=== PATIENT | female | born 1935 | race Hispanic/Latino ===

== ENCOUNTER 2017-12-23 16:39 | Inpatient (IN) | payer MEDICARE, BC ==
[2017-12-23 16:55] VITALS: BMI 20.5
[2017-12-23 19:42] LABS: CK-MB 0.77 ng/mL (0.0-3.38)
[2017-12-23 19:43] LABS: TROPONIN I 0.017 ng/mL (0.00-0.120)
--- NOTE | 2017-12-23 19:48 | C.PDOC ---
History Of Present Illness 82yo female with history of hypertension, [place] along with watchman's procedure, splenectomy, presents today because she has been having difficulty walking. She reports frequent falls in the last couple months with last fall 3-4 days ago. She is also complaining of generalized weakness and bodyaches. She reports she injured her arms and legs and has bruises on her arms; also reports right sided rib pain. She denies any fever, chills, chest pain, shortness of breath. Of note , patient states she has not eaten for the last 4 days because she has not had any appetite. She denies any abdominal pain, vomiting, diarrhea, constipation. No urinary symptoms. No other complaints. Time Seen by Provider: 12/23/17 19:09 Chief Complaint (Nursing): Chest Pain Past Medical History Vital Signs: Last Vital Signs Temp 97.1 F L 12/23/17 16:55 Pulse 79 12/23/17 16:55 Resp 20 12/23/17 16:55 BP 125/77 12/23/17 16:55 Pulse Ox 99 12/23/17 16:55 - Medical History PMH: Arthritis (feet legs), Cardia Arrhythmia, Diverticulitis, HTN, Hypothyroidism, Pneumonia Denies: Depression, Chronic Kidney Disease Surgical History: Appendectomy, Pacemaker - [facility] Procedures AUTOMATIC IMPLANT CARDIOVERTER/DEFIBRILLATOR (AICD) CHECK (06/04/13) DRESSING TECHNIQUES TREATMENT USING ASSIST EQUIPMENT (10/30/17) ESOPHAGOGASTRODUODENOSCOPY [EGD] W/CLOSED BIOPSY (04/06/04) EXERCISE TREATMENT OF MUSCULOSK LOW BACK/LE USING OTH EQUIP (10/30/17) GAIT TRAINING/FUNCTIONAL AMBULATION TREATMENT (10/30/17) GROOMING/PERSONAL HYGIENE TREATMENT (10/30/17) INJECT/INFUSE NEC (06/04/13) MAGNETIC RESONANCE IMAGING OF BRAIN AND BRAIN STEM (04/06/04) - Social History Hx Tobacco Use: No Hx Alcohol Use: No (pt states she drinks socially) Hx Substance Use: No ED Course And Treatment O2 Sat by Pulse Oximetry: 99 Disposition - Disposition
--- NOTE | 2017-12-23 19:53 | C.PDOC ---
History Of Present Illness 82yo female with history of hypertension, [place] along with watchman's procedure, splenectomy, presents today because she has been having difficulty walking. She reports frequent falls in the last couple months with last fall 3-4 days ago. She is also complaining of generalized weakness and bodyaches. She reports she injured her arms and legs and has bruises on her arms; also reports right sided rib pain. She denies any fever, chills, chest pain, shortness of breath. Of note , patient states she has not eaten for the last 4 days because she has not had any appetite. She denies any abdominal pain, vomiting, diarrhea, constipation. No urinary symptoms. No other complaints. - HPI Time Seen by Provider: 12/23/17 19:09 Chief Complaint (Nursing): Chest Pain History Per: Patient History/Exam Limitations: no limitations Onset/Duration Of Symptoms: Days Additional History Per: Patient Past Medical History Reviewed: Historical Data, Nursing Documentation, Vital Signs Vital Signs: Last Vital Signs Temp 97.1 F L 12/23/17 16:55 Pulse 79 12/23/17 16:55 Resp 20 12/23/17 16:55 BP 125/77 12/23/17 16:55 Pulse Ox 99 12/23/17 21:45 - Medical History PMH: Arthritis (feet legs), Cardia Arrhythmia, Diverticulitis, HTN, Hypothyroidism, Pneumonia Denies: Depression, Chronic Kidney Disease Surgical History: Appendectomy, Pacemaker - [facility] Procedures AUTOMATIC IMPLANT CARDIOVERTER/DEFIBRILLATOR (AICD) CHECK (06/04/13) DRESSING TECHNIQUES TREATMENT USING ASSIST EQUIPMENT (10/30/17) ESOPHAGOGASTRODUODENOSCOPY [EGD] W/CLOSED BIOPSY (04/06/04) EXERCISE TREATMENT OF MUSCULOSK LOW BACK/LE USING OTH EQUIP (10/30/17) GAIT TRAINING/FUNCTIONAL AMBULATION TREATMENT (10/30/17) GROOMING/PERSONAL HYGIENE TREATMENT (10/30/17) INJECT/INFUSE NEC (06/04/13) MAGNETIC RESONANCE IMAGING OF BRAIN AND BRAIN STEM (04/06/04) - Social History Hx Tobacco Use: No Hx Alcohol Use: No (pt states she drinks socially) Hx Substance Use: No Review Of Systems Except As Marked, All Systems Reviewed And Found Negative. Constitutional: Negative for: Fever, Chills Cardiovascular: Negative for: Chest Pain Respiratory: Negative for: Shortness of Breath Gastrointestinal: Negative for: Nausea, Vomiting, Diarrhea, Constipation Musculoskeletal: Positive for: Other (bruises to arms and legs; right sided lower rib pain) Neurological: Positive for: Other (falls) Physical Exam - Physical Exam Appears: Non-toxic Skin: Ecchymosis Head: Atraumatic, Normacephalic Eye(s): bilateral: Normal Inspection Neck: Normal ROM, Supple Chest: Symmetrical, Tenderness (reproducible mid-sternal and bilateral chest wall tenderness) Cardiovascular: Rhythm Regular Respiratory: Normal Breath Sounds Gastrointestinal/Abdominal: Normal Exam, Bowel Sounds, Soft, No Tenderness Back: Other (back in brace) Extremity: Normal ROM, Pedal Edema (2+ pittting edema bilaterally), Other ( ecchymosis noted to bilateral upper and lower extremities. ) Neurological/Psych: Oriented x3 ED Course And Treatment - Laboratory Results Result Diagrams: 12/23/17 20:47 12/23/17 20:47 ECG: Interpreted By Me, Viewed By Me Interpretation Of ECG: Normal sinus rhythm. RBBB. Left anterior fascicular block. Non-specific T-wave changes Rate From EC O2 Sat by Pulse Oximetry: 99 (RA) Pulse Ox Interpretation: Normal Medical Decision Making Medical Decision Making: Impression: Weakness, frequent falls Plan: -- CT Head w/o contrast -- XR Ribs and chest -- Labs Time: 2118 CT Head IMPRESSION: 1. No definite intracranial hemorrhage. 2. Nonspecific white matter changes. 3. Incidental/non-acute findings are described above. Time: [address] Belcher and patient to be admitted to Telemetry for near syncope. resident advisor aware and to follow up pending labs. Disposition Discussed With : Alberto Belcher Jr. Counseled Patient/Family Regarding: Studies Performed, Diagnosis - Disposition Disposition: HOSPITALIZED Disposition Time: 21:46 Condition: FAIR Forms: [facility] (Hungarian) - Clinical Impression Clinical Impression: Near syncope, Rib contusion - Scribe Statement The provider has reviewed the documentation as recorded by the Scribe (Isha Leonardo) Provider Attestation: All medical record entries made by the Scribe were at my direction and personally dictated by me. I have reviewed the chart and agree that the record accurately reflects my personal performance of the history, physical exam, medical decision making, and the department course for this patient. I have also personally directed, reviewed, and agree with the discharge instructions and disposition.
[2017-12-23 20:53] LABS: BASO # 0.1 K/uL (0.0-0.2); BASO % 1.4 % (0.0-2.0); EOS % 0.7 % (0.0-4.0); HEMOGLOBIN 11.7 g/dL (11.0-16.0); LYMPH # 1.1 K/uL (1.0-4.3); LYMPH % 18.4 % (20.0-40.0); MEAN CELL VOLUME 102.3 fL (81.0-99.0); MEAN CORPUSCULAR HEMOGLOBIN 33.8 pg (27.0-31.0); MEAN PLATELET VOLUME 9.6 fL (7.2-11.7); MONO # 0.3 K/uL (0.0-0.8); MONO % 4.9 % (0.0-10.0); NEUT # 4.3 K/uL (1.8-7.0); NEUT % 74.6 % (50.0-75.0); NRBC % 1.3 % (0.0-2.0); RBC 3.46 Mil/uL (3.80-5.20); RED CELL DISTRIBUTION WIDTH 19.9 % (11.5-14.5); WHITE BLOOD COUNT 5.7 K/uL (4.8-10.8)
--- NOTE | 2017-12-23 21:15 | CT ---
EXAM: CT Head Without Intravenous Contrast CLINICAL HISTORY: 82 years old, female; Injury or trauma; Fall; Initial encounter; Abrasion; Head, generalized TECHNIQUE: Axial computed tomography images of the head/brain without intravenous contrast. All CT scans at this facility use one or more dose reduction techniques, viz.: automated exposure control; ma/kV adjustment per patient size (including targeted exams where dose is matched to indication; i.e. head); or iterative reconstruction technique. COMPARISON: No relevant prior studies available. FINDINGS: Limitations: Motion artifact - mild. Brain: Moderate atrophy. No definite intracranial hemorrhage. No mass. Few scattered foci of decreased attenuation within periventricular/subcortical white matter. 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 No definite edema. Ventricles: No hydrocephalus. Bones/joints: No acute fracture. Soft tissues: Unremarkable. Vasculature: Atherosclerotic disease of intracranial arteries. Sinuses: No acute sinusitis. Mastoid air cells: No mastoid effusion. Orbits: Unremarkable as visualized. IMPRESSION: 1. No definite intracranial hemorrhage. 2. Nonspecific white matter changes. 3. Incidental/non-acute findings are described above.
[2017-12-23 21:22] LABS: ALB/GLOB RATIO 1.2 (1.0-2.1); ALBUMIN 3.3 g/dL (3.5-5.0); CALCIUM 8.5 mg/dl (8.6-10.4); GFR AFRICAN-AMERICAN > 60; GFR NON-AFRICAN AMERICAN > 60
[2017-12-23 21:31] LABS: B-TYPE NATRIURETIC PEPTIDE 477 pg/mL (0-900)
[2017-12-23 21:34] LABS: ALT/SGPT 54 U/L (9-52); AST/SGOT 113 U/L (14-36); BLOOD UREA NITROGEN 15 mg/dL (7-17)
[2017-12-23 22:06] LABS: SQUAMOUS EPITHIAL 7 /hpf (0-5); URINE BILIRUBIN NEGATIVE (NEGATIVE); URINE BLOOD 1+ (NEGATIVE); URINE CLARITY Hazy (Clear); URINE COLOR Amber (YELLOW); URINE GLUCOSE (UA) NORMAL (Normal); URINE LEUKOCYTE ESTERASE NEG Leu/uL (Negative); URINE NITRATE NEGATIVE (NEGATIVE); URINE PROTEIN NEGATIVE (NEGATIVE)
--- NOTE | 2017-12-23 22:49 | CP.PCM.HP ---
History of Present Illness - History of Present Illness History of Present Illness: CC: weakness/loss of balance This ia an 82 y/o female with history of hypertension, [place], CAD s/p stent(s), chronic lower back pain, anxiety, afib s/p watchman's procedure and diverticulitis s/p colon resection. She presents today because she has been having difficulty walking. She explains that she has been feeling off balance for about two weeks now. The episodes are relapsing and remitting. It is unclear if she has had any recent falls because she states she has not but when asked about bruising on her arms she states that it is from falls. She reports she injured her arms and legs and has bruises on her arms and legs. She is also complaining of generalized weakness. She denies any headache, fever, chills, chest pain, shortness of breath, chest pain, vomiting diarrhea, constipation, dysuria. She states that she does become nauseous during these episodes but denies dizziness/feeling the room is spinning/she is spinning. She states she just feels weak and off balance. She states that she saw Dr. Belcher at his office yesterday who instructed her to come to the ED for further evaluation but she was unable to come because her daughter was working and she could not get here. Of note, in speaking with her PMD, Dr. Belcher, he explains that the patient has dementia and may have provided an inaccurate account of events. He explains that the patient has had multiple falls and is having a severely compromised gait. PMD: Dr. Belcher Pmhx: hypertension, [place], CAD s/p stent(s), chronic lower back pain, anxiety, afib s/p watchman's procedure and diverticulitis s/p colon resection Pshx: watchman's procedure, colon resection, splenectomy Meds: Temazepam 15mg PO qhs, Lisinopril 20mg PO qd, metoprolol succ 25mg PO daily, nexium 40mg PO daily, Plavix 75mg PO daily, amiodarone 200mg PO daily, pecocet 5/325mg 1T PO q4hrs prn, xanax, 0.5mg po tid allergies: NKDA Famhx: "heart problems in everyone" Sochx: no smoking, drinks sparingly, no drugs Present on Admission - Present on Admission Any Indicators Present on Admission: No Review of Systems - Review of Systems Systems not reviewed;Unavailable: Dementia - Constitutional Constitutional: Weakness. absent: Chills, Fever - EENT Eyes: absent: Blurred Vision, Loss of Vision - Cardiovascular Cardiovascular: absent: Chest Pain, Diaphoresis, Dyspnea - Respiratory Respiratory: absent: Cough, Dyspnea, Wheezing - Gastrointestinal Gastrointestinal: Nausea. absent: Abdominal Pain, Constipation, Diarrhea, Vomiting - Genitourinary Genitourinary: absent: Difficulty Urinating, Dysuria, Flank Pain - Musculoskeletal Musculoskeletal: Back Pain (chronic lbp, now has pain in the ribs on the right) . absent: Numbness, Tingling - Integumentary Integumentary: Unusual Bruising (on arms and legs) - Neurological Neurological: Abnormal Gait, Dizziness, Frequent Falls, Weakness Past Patient History - Infectious Disease Hx of Infectious Diseases: None - Tetanus Immunizations Tetanus Immunization: Unknown - Past Social History Smoking Status: Never Smoked - CARDIAC Hx Cardia Arrhythmia: Yes Hx Hypertension: Yes Hx Pacemaker: Yes - PULMONARY Hx Pneumonia: Yes - NEUROLOGICAL Hx Neurological Disorder: Yes (NEAR SYNCOPE) Hx Dizziness: Yes - HEENT Hx HEENT Problems: No - RENAL Hx Chronic Kidney Disease: No - ENDOCRINE/METABOLIC Hx Hypothyroidism: Yes - HEMATOLOGICAL/ONCOLOGICAL Hx Blood Disorders: No - INTEGUMENTARY Hx Dermatological Problems: Yes Other/Comment: 10-24-17 MULTIPLE ROUND DRY RASH ALL OVER UPPER BACK,BILATERAL ARM ,BILATERAL LE. - MUSCULOSKELETAL/RHEUMATOLOGICAL Hx Arthritis: Yes (feet legs) - GASTROINTESTINAL Hx Diverticulitis: Yes - GENITOURINARY/GYNECOLOGICAL Hx Genitourinary Disorders: Yes (HYSTERECTOMY) - PSYCHIATRIC Hx Depression: No Hx Substance Use: No - SURGICAL HISTORY Hx Appendectomy: Yes - ANESTHESIA Hx Anesthesia: Yes Hx Anesthesia Reactions: No Hx Malignant Hyperthermia: No Meds Allergies/Adverse Reactions: Allergies Allergy/AdvReac Type Severity Reaction Status Date / Time No Known Allergies Allergy Verified 11/18/17 11:48 Physical Exam - Constitutional Appears: No Acute Distress, Confused - Head Exam Head Exam: ATRAUMATIC, NORMOCEPHALIC - Eye Exam Eye Exam: EOMI, Normal appearance - ENT Exam ENT Exam: Mucous Membranes Moist - Neck Exam Neck exam: Negative for: Tenderness - Respiratory Exam Respiratory Exam: Clear to Auscultation Bilateral, NORMAL BREATHING PATTERN. absent: Rhonchi, Wheezes - Cardiovascular Exam Cardiovascular Exam: Irregular Rhythm - GI/Abdominal Exam GI & Abdominal Exam: Soft. absent: Distended (scars from previous surgeries), Tenderness - Extremities Exam Extremities exam: Positive for: pedal edema (+1, non-pitting). Negative for: calf tenderness - Back Exam Back exam: absent: CVA tenderness (L), CVA tenderness (R) - Neurological Exam Neurological exam: Abnormal Gait, Alert - Psychiatric Exam Psychiatric exam: Anxious - Skin Skin Exam: Dry, Intact, Warm (bruising on arms and legs) Results - Vital Signs Recent Vital Signs: Last Vital Signs Temp 97.1 F L 12/23/17 16:55 Pulse 70 12/23/17 22:33 Resp 13 12/23/17 22:33 BP 131/54 L 12/23/17 22:33 Pulse Ox 99 12/23/17 22:33 - Labs Result Diagrams: 12/23/17 20:47 12/23/17 20:47 Labs: Laboratory Results - last 24 hr 12/23/17 12/23/17 12/23/17 19:15 20:47 20:47 WBC 5.7 RBC 3.46 L Hgb 11.7 Hct 35.4 MCV 102.3 H MCH 33.8 H MCHC 33.0 RDW 19.9 H Plt Count 197 MPV 9.6 Neut % (Auto) 74.6 Lymph % (Auto) 18.4 L [place] % (Auto) 4.9 Eos % (Auto) 0.7 Baso % (Auto) 1.4 Neut # (Auto) 4.3 Lymph # (Auto) 1.1 Valley # (Auto) 0.3 Eos # (Auto) 0.0 Baso # (Auto) 0.1 Sodium Cancelled 137 Potassium Cancelled 4.3 Chloride Cancelled 106 Carbon Dioxide Cancelled 23 Anion Gap Cancelled 12 BUN Cancelled 15 Creatinine 0.7 Est GFR ( Amer) Cancelled > 60 Est GFR (Non-Af Amer) Cancelled > 60 Random Glucose Cancelled 110 H Calcium Cancelled 8.5 L Total Bilirubin Cancelled 1.0 AST Cancelled 113 H D ALT Cancelled 54 H Alkaline Phosphatase Cancelled 87 Total Creatine Kinase 57 CK-MB (Mass) 0.77 Troponin I 0.0170 NT-Pro-B Natriuret Pep Cancelled 477 Total Protein Cancelled 6.0 L Albumin Cancelled 3.3 L Globulin Cancelled 2.8 Albumin/Globulin Ratio Cancelled 1.2 Urine Color Urine Clarity Urine pH Ur Specific [place] Urine Protein Urine Glucose (UA) Urine Ketones Urine Blood Urine Nitrate Urine Bilirubin Urine Urobilinogen Ur Leukocyte Esterase Urine WBC (Auto) Urine RBC (Auto) Ur Squamous Epith Cells 12/23/17 21:59 WBC RBC Hgb Hct MCV MCH MCHC RDW Plt Count MPV Neut % (Auto) Lymph % (Auto) Valley % (Auto) Eos % (Auto) Baso % (Auto) Neut # (Auto) Lymph # (Auto) [place] # (Auto) Eos # (Auto) Baso # (Auto) Sodium Potassium Chloride Carbon Dioxide Anion Gap BUN Creatinine Est GFR ( Amer) Est GFR (Non-Af Amer) Random Glucose Calcium Total Bilirubin AST ALT Alkaline Phosphatase Total Creatine Kinase CK-MB (Mass) Troponin I NT-Pro-B Natriuret Pep Total Protein Albumin Globulin Albumin/Globulin Ratio Urine Color [place] Urine Clarity Hazy Urine pH 5.0 Ur Specific [place] 1.024 Urine Protein Negative Urine Glucose (UA) Normal Urine Ketones Negative Urine Blood 1+ H Urine Nitrate Negative Urine Bilirubin Negative Urine Urobilinogen 4.0 H Ur Leukocyte Esterase Neg Urine WBC (Auto) 1 Urine RBC (Auto) 3 Ur Squamous Epith Cells 7 H Assessment & Plan - Assessment and Plan (Free Text) Plan: Weakness/failure to thrive with recent falls Admission to [facility] Patient has hx of dementia CT head negative for acute changes Follow up x-ray ribs for any fractures or acute changes MIRZA: 0.0170; follow up MIRZA's x2 EKG reviewed- abnormal, prolonged QTc- follow up official read UA: +1 blood, 4.0 urobilinogen Hgb on admission 11.7 Albumin 3.3 Normal WBC PT evaluation Home med continued: folate, thiamine Follow up labs- cbc/cmp/lipid panel/tsh/t4/RPR/vit D/B12/Folate/hemoglobin A1C Follow up orthostatics Transaminitis- mild AST/ALT 113/54 continue to monitor Chronic Lower back pain Home med continued: percocet 5/325mg q4hrs prn Given Ultram in ED HTN Home med continued: Lisinopril 20mg PO daily, Metoprolol Succ 25mg PO daily Chronic Afib S/P Watchman's procedure Home med continued: plavix 75mg PO daily start ASA 81mg daily CAD Home med continued: plavix 75mg PO daily, amiodarone 200mg PO daily start ASA 81mg daily Anxiety Home med continued: xanax 0.5mg PO TID, Temazepam 15mg PO hs Consider discontinuation/substitution given recent hx of falls Prophylaxis Pepcid 20mg PO BID No a/c due to recent falls bruising/bleeding Case discussed with Dr. Simi Villanueva D.O.
[2017-12-23] MEDS ORDERED: Oxycodone/Acetaminophen 5/325 mg Tab PO PRN (23:32)
[2017-12-24] MEDS: Oxycodone/Acetaminophen 5/325 mg Tab PO PRN ×5 (01:40→20:10)
[2017-12-24] MEDS ORDERED: Oxycodone/Acetaminophen 5/325 mg Tab ONE ×2 (01:42→05:42)
[2017-12-24 02:05] LABS: CK-MB 0.47 ng/mL (0.0-3.38)
[2017-12-24 04:57] LABS: BASO # 0.1 K/uL (0.0-0.2); EOS # 0.1 K/uL (0.0-0.7); EOS % 2.4 % (0.0-4.0); HEMOGLOBIN 10.7 g/dL (11.0-16.0); LYMPH # 1.5 K/uL (1.0-4.3); LYMPH % 27.7 % (20.0-40.0); MEAN CELL VOLUME 102.4 fL (81.0-99.0); MEAN CORPUSCULAR HEMOGLOBIN 33.8 pg (27.0-31.0); MEAN PLATELET VOLUME 9.3 fL (7.2-11.7); MONO # 0.4 K/uL (0.0-0.8); MONO % 8.2 % (0.0-10.0); NEUT # 3.2 K/uL (1.8-7.0); NEUT % 59.7 % (50.0-75.0); NRBC % 1.2 % (0.0-2.0); RBC 3.16 Mil/uL (3.80-5.20); RED CELL DISTRIBUTION WIDTH 20.2 % (11.5-14.5); WHITE BLOOD COUNT 5.4 K/uL (4.8-10.8)
[2017-12-24 05:31] LABS: LDL CHOLESTEROL 41 mg/dL (0-129)
[2017-12-24 05:36] LABS: T4 8.51 ug/dL (5.5-11.0)
[2017-12-24] MEDS ORDERED: Ergocalciferol 50,000 Intl Units Cap PO SCH (05:45)
[2017-12-24 06:24] LABS: FOLATE > 20.0 ng/mL
[2017-12-24 06:45] LABS: ALB/GLOB RATIO 1.1 (1.0-2.1); ALBUMIN 2.8 g/dL (3.5-5.0); ALT/SGPT 50 U/L (9-52); AST/SGOT 67 U/L (14-36); BLOOD UREA NITROGEN 16 mg/dL (7-17); CALCIUM 8.4 mg/dl (8.6-10.4); GFR AFRICAN-AMERICAN > 60; GFR NON-AFRICAN AMERICAN > 60; HDL CHOLESTEROL 87 mg/dL (30-70); MAGNESIUM 1.6 mg/dL (1.6-2.3)
[2017-12-24] MEDS: Metoprolol Succinate 25 mg XL Tab PO SCH (09:35)
--- NOTE | 2017-12-24 11:43 | RAD ---
PROCEDURE: Radiographs of the Chest and Right Ribs. HISTORY: fall COMPARISON: None. TECHNIQUE: Frontal radiograph of the chest and multiple oblique radiographs of the right ribs were obtained. FINDINGS: RIGHT RIBS: No appreciable displaced right rib fracture. LUNGS: Right hilar prominence. No focal consolidation. PLEURA: No significant pleural effusion. No definite pneumothorax. CARDIOVASCULAR: Left-sided AICD. Cardiomegaly. Prominent ectatic aorta. OTHER FINDINGS: Osseous demineralization. Degenerative changes. IMPRESSION: Left-sided AICD. Cardiomegaly. Prominent ectatic aorta. Right hilar prominence. If indicated, suggest CT of the chest with IV contrast for further evaluation. No appreciable displaced right rib fracture.
--- NOTE | 2017-12-24 12:03 | CP.PCM.PN ---
Subjective - Date & Time of Evaluation Date of Evaluation: 12/24/17 Time of Evaluation: 12:03 - Subjective Subjective: Medicine progress note for Dr. Belcher's service Patient was seen and examined at bedside in no acute distress. Patient reports feeling mildly nauseas, dizzy, and weak. She complains that she cannot walk easily and does not have good balance. Patient otherwise has no complaints and denies chest pain, abdominal pain, vomiting, fevers, headaches. Objective - Vital Signs/Intake and Output Vital Signs (last 24 hours): Temp Pulse Resp BP Pulse Ox 97.4 F L 81 20 147/90 95 12/24/17 10:56 12/24/17 10:56 12/24/17 10:56 12/24/17 10:56 12/24/17 10:56 - Medications Medications: Current Medications Alprazolam (Xanax) 0.5 mg PO TID [facility] Last Admin: 12/24/17 09:35 Dose: 0.5 mg Amiodarone HCl (Cordarone) 200 mg PO DAILY [facility] Last Admin: 12/24/17 09:35 Dose: 200 mg Aspirin (Aspirin Chewable) 81 mg PO DAILY [facility] Last Admin: 12/24/17 09:35 Dose: 81 mg Clopidogrel Bisulfate (Plavix) 75 mg PO DAILY [facility] Last Admin: 12/24/17 09:35 Dose: 75 mg Donepezil HCl (Aricept) 5 mg PO [facility] Ergocalciferol (Drisdol 50,000 Intl Units Cap) 1 cap PO Q7D [facility] Last Admin: 12/24/17 06:23 Dose: 1 cap Famotidine (Pepcid) 20 mg PO BID [facility] Last Admin: 12/24/17 09:35 Dose: 20 mg Folic Acid (Folic Acid) 1 mg PO DAILY [facility] Last Admin: 12/24/17 09:35 Dose: 1 mg Lisinopril (Zestril) 20 mg PO DAILY [facility] Last Admin: 12/24/17 09:35 Dose: 20 mg Metoprolol Succinate (Toprol Xl) 25 mg PO DAILY [facility] Last Admin: 12/24/17 09:35 Dose: 25 mg Oxycodone/Acetaminophen (Percocet 5/325 Mg Tab) 1 tab PO Q4H PRN PRN Reason: Pain, moderate (4-7) Stop: 12/26/17 23:02 Last Admin: 12/24/17 05:41 Dose: 1 tab Pneumococcal Polyvalent Vaccine (Pneumovax 23 Vaccine) 0.5 ml IM .ONCE ONE Stop: 12/27/17 10:01 Sertraline HCl (Zoloft) 50 mg PO HS [facility] Temazepam (Restoril) 15 mg PO HS [facility] Thiamine HCl (Vitamin B1 Tab) 100 mg PO DAILY [facility] Last Admin: 12/24/17 09:35 Dose: 100 mg - Labs Labs: 12/24/17 04:52 12/24/17 04:52 APTT 30 SECONDS (21-34) 12/23/17 23:03 - Constitutional Appears: No Acute Distress - Head Exam Head Exam: NORMAL INSPECTION, NORMOCEPHALIC - Eye Exam Eye Exam: EOMI, Normal appearance - ENT Exam ENT Exam: Mucous Membranes Moist - Respiratory Exam Respiratory Exam: Clear to Ausculation Bilateral, NORMAL BREATHING PATTERN. absent: Rales, Rhonchi, Wheezes, Respiratory Distress - Cardiovascular Exam Cardiovascular Exam: REGULAR RHYTHM, +S1, +S2 - GI/Abdominal Exam GI & Abdominal Exam: Soft, Normal Bowel Sounds. absent: Distended, Firm, Tenderness - Extremities Exam Extremities Exam: absent: Pedal Edema Additional comments: Contusions UE/LE b/l (as per patient- from frequent falls) - Neurological Exam Neurological Exam: Alert, Awake - Psychiatric Exam Psychiatric exam: Normal Affect, Normal Mood - Skin Skin Exam: Dry, Intact, Warm Additional comments: Contusions and abrasions noted on UE/LE bilaterally (per patient, from frequent falls) Assessment and Plan - Assessment and Plan (Free Text) Plan: Weakness/failure to thrive with recent falls Admission to [facility] Patient has hx of dementia CT head negative for acute changes x-ray ribs: left sided aicd, cardiomegaly, prominent ectatic aorta; right hilar prominence; no displaced or fractured rib. MIRZA x3 negative EKG reviewed- abnormal, prolonged QTc- follow up official read UA: +1 blood, 4.0 urobilinogen Hgb on admission 11.7 Albumin 3.3 Normal WBC PT evaluation Home med continued: folate, thiamine lipid panel: TG 81, Chol 137, LDL 41, HDL 87 tsh/t4: 1.67/8.51 vit D: <12.8 vit B12: 429 Folate >20 hemoglobin A1C 4.6 RPR: f/u HIV: negative Follow up orthostatics Started aricept 5mg PO HS, namenda 5mg PO BID, zoloft 50mg PO HS Transaminitis- mild AST/ALT 113/54 continue to monitor Chronic Lower back pain Home med continued: percocet 5/325mg q4hrs prn Given Ultram in ED HTN Home med continued: Lisinopril 20mg PO daily, Metoprolol Succ 25mg PO daily Chronic Afib S/P Watchman's procedure Home med continued: plavix 75mg PO daily start ASA 81mg daily CAD Home med continued: plavix 75mg PO daily, amiodarone 200mg PO daily start ASA 81mg daily Anxiety Home med continued: xanax 0.5mg PO TID, Temazepam 15mg PO hs Consider discontinuation/substitution given recent hx of falls Prophylaxis Pepcid 20mg PO BID No a/c due to recent falls bruising/bleeding Case discussed with Dr. Belcher All management as per Dr. Belcher.
--- NOTE | 2017-12-24 13:59 | CARD ---
APPROVED REPORT EKG Measurement Heart [id number] <Conclusion> Normal sinus rhythm Right bundle branch block Left anterior fascicular block Bifascicular block Septal infarct, age undetermined Abnormal ECG
[2017-12-25] MEDS: Oxycodone/Acetaminophen 5/325 mg Tab PO PRN ×4 (00:30→21:51)
[2017-12-25 04:44] VITALS: RESP 20
--- NOTE | 2017-12-25 07:02 | CP.PCM.PN ---
Subjective - Date & Time of Evaluation Date of Evaluation: 12/25/17 Time of Evaluation: 07:02 - Subjective Subjective: Medicine progress note for Dr. Belcher's service Patient was seen and examined at bedside in no acute distress. Patient laying comfortably in bed sleeping. Patient reports having minimal nausea, and denies feeling dizzy and weak. Patient otherwise has no complaints and denies chest pain, abdominal pain, vomiting, fevers, headaches. Objective - Vital Signs/Intake and Output Vital Signs (last 24 hours): Temp Pulse Resp BP Pulse Ox 97.8 F 76 20 128/70 95 12/25/17 04:00 12/25/17 04:51 12/25/17 04:00 12/25/17 04:51 12/25/17 04:00 Intake and Output: 12/25/17 12/25/17 06:59 18:59 Intake Total 630 Balance 630 - Medications Medications: Current Medications Alprazolam (Xanax) 0.5 mg PO TID [facility] Last Admin: 12/24/17 17:42 Dose: 0.5 mg Amiodarone HCl (Cordarone) 200 mg PO DAILY [facility] Last Admin: 12/24/17 09:35 Dose: 200 mg Aspirin (Aspirin Chewable) 81 mg PO DAILY [facility] Last Admin: 12/24/17 09:35 Dose: 81 mg Clopidogrel Bisulfate (Plavix) 75 mg PO DAILY [facility] Last Admin: 12/24/17 09:35 Dose: 75 mg Donepezil HCl (Aricept) 5 mg PO HS [facility] Last Admin: 12/24/17 21:35 Dose: 5 mg Ergocalciferol (Drisdol 50,000 Intl Units Cap) 1 cap PO Q7D [facility] Last Admin: 12/24/17 06:23 Dose: 1 cap Famotidine (Pepcid) 20 mg PO BID [facility] Last Admin: 12/24/17 17:42 Dose: 20 mg Folic Acid (Folic Acid) 1 mg PO DAILY [facility] Last Admin: 12/24/17 09:35 Dose: 1 mg Lisinopril (Zestril) 20 mg PO DAILY [facility] Last Admin: 12/24/17 09:35 Dose: 20 mg Memantine (Namenda) 5 mg PO BID [facility] Last Admin: 12/24/17 17:42 Dose: 5 mg Metoprolol Succinate (Toprol Xl) 25 mg PO DAILY [facility] Last Admin: 12/24/17 09:35 Dose: 25 mg Oxycodone/Acetaminophen (Percocet 5/325 Mg Tab) 1 tab PO Q4H PRN PRN Reason: Pain, moderate (4-7) Stop: 12/26/17 23:02 Last Admin: 12/25/17 04:52 Dose: 1 tab Pneumococcal Polyvalent Vaccine (Pneumovax 23 Vaccine) 0.5 ml IM .ONCE ONE Stop: 12/27/17 10:01 Sertraline HCl (Zoloft) 50 mg PO [facility] Last Admin: 12/24/17 21:35 Dose: 50 mg Temazepam (Restoril) 15 mg PO [facility] Last Admin: 12/24/17 21:35 Dose: 15 mg Thiamine HCl (Vitamin B1 Tab) 100 mg PO DAILY [facility] Last Admin: 12/24/17 09:35 Dose: 100 mg - Labs Labs: 12/24/17 04:52 12/24/17 04:52 APTT 30 SECONDS (21-34) 12/23/17 23:03 - Additional Findings Additional findings: - Constitutional Appears: No Acute Distress - Head Exam Head Exam: NORMAL INSPECTION, NORMOCEPHALIC - Eye Exam Eye Exam: EOMI, Normal appearance - ENT Exam ENT Exam: Mucous Membranes Moist - Respiratory Exam Respiratory Exam: Clear to Ausculation Bilateral, NORMAL BREATHING PATTERN. absent: Rales, Rhonchi, Wheezes, Respiratory Distress - Cardiovascular Exam Cardiovascular Exam: REGULAR RHYTHM, +S1, +S2 - GI/Abdominal Exam GI & Abdominal Exam: Soft, Normal Bowel Sounds. absent: Distended, Firm, Tenderness - Extremities Exam Extremities Exam: absent: Pedal Edema Additional comments: Contusions UE/LE b/l (as per patient- from frequent falls) - Neurological Exam Neurological Exam: Alert, Awake - Psychiatric Exam Psychiatric exam: Normal Affect, Normal Mood - Skin Skin Exam: Dry, Intact, Warm Additional comments: Contusions and abrasions noted on UE/LE bilaterally (per patient, from frequent falls) Assessment and Plan - Assessment and Plan (Free Text) Plan: Weakness/failure to thrive with recent falls Admission to [facility] Patient has hx of dementia CT head negative for acute changes x-ray ribs: left sided aicd, cardiomegaly, prominent ectatic aorta; right hilar prominence; no displaced or fractured rib. MIRZA x3 negative EKG reviewed- abnormal, prolonged QTc- follow up official read UA: +1 blood, 4.0 urobilinogen Hgb on admission 11.7 Albumin 3.3 Normal WBC PT evaluation Home med continued: folate, thiamine lipid panel: TG 81, Chol 137, LDL 41, HDL 87 tsh/t4: 1.67/8.51 vit D: <12.8 vit B12: 429 Folate >20 hemoglobin A1C 4.6 RPR: negative HIV: negative Follow up orthostatics Continue aricept 5mg PO HS, namenda 5mg PO BID, zoloft 50mg PO HS Transaminitis- mild AST/ALT 113/54 continue to monitor Chronic Lower back pain Home med continued: percocet 5/325mg q4hrs prn Given Ultram in ED HTN Home med continued: Lisinopril 20mg PO daily, Metoprolol Succ 25mg PO daily Chronic Afib S/P Watchman's procedure Home med continued: plavix 75mg PO daily start ASA 81mg daily CAD Home med continued: plavix 75mg PO daily, amiodarone 200mg PO daily start ASA 81mg daily Anxiety Home med continued: xanax 0.5mg PO TID, Temazepam 15mg PO hs Consider discontinuation/substitution given recent hx of falls Prophylaxis Pepcid 20mg PO BID No a/c due to recent falls bruising/bleeding Dispo: Case management, social services manager consulted to arrange placement in [facility]. Case discussed with Dr. Belcher All management as per Dr. Belcher.
[2017-12-25] MEDS: Metoprolol Succinate 25 mg XL Tab PO SCH (10:10)
[2017-12-25 11:54] LABS: BASO # 0.1 K/uL (0.0-0.2); BASO % 1.6 % (0.0-2.0); EOS # 0.1 K/uL (0.0-0.7); EOS % 2.5 % (0.0-4.0); HEMOGLOBIN 10.5 g/dL (11.0-16.0); LYMPH % 20.5 % (20.0-40.0); MEAN CELL VOLUME 103.1 fL (81.0-99.0); MEAN CORPUSCULAR HEMOGLOBIN 34.4 pg (27.0-31.0); MEAN CORPUSCULAR HGB CONC 33.4 g/dL (33.0-37.0); MEAN PLATELET VOLUME 9.3 fL (7.2-11.7); MONO # 0.4 K/uL (0.0-0.8); MONO % 9.2 % (0.0-10.0); NEUT # 3.2 K/uL (1.8-7.0); NEUT % 66.2 % (50.0-75.0); NRBC % 0.6 % (0.0-2.0); RBC 3.07 Mil/uL (3.80-5.20); RED CELL DISTRIBUTION WIDTH 20.6 % (11.5-14.5); WHITE BLOOD COUNT 4.8 K/uL (4.8-10.8)
[2017-12-25 12:13] LABS: ALB/GLOB RATIO 1.2 (1.0-2.1); ALBUMIN 2.9 g/dL (3.5-5.0); ALT/SGPT 40 U/L (9-52); AST/SGOT 30 U/L (14-36); BLOOD UREA NITROGEN 12 mg/dL (7-17); CALCIUM 8.2 mg/dl (8.6-10.4); GFR AFRICAN-AMERICAN > 60; GFR NON-AFRICAN AMERICAN > 60; MAGNESIUM 1.6 mg/dL (1.6-2.3)
[2017-12-26] MEDS: Oxycodone/Acetaminophen 5/325 mg Tab PO PRN (02:22)
[2017-12-26 07:57] LABS: BASO # 0.1 K/uL (0.0-0.2); BASO % 1.7 % (0.0-2.0); EOS # 0.2 K/uL (0.0-0.7); EOS % 3.2 % (0.0-4.0); HEMOGLOBIN 10.5 g/dL (11.0-16.0); LYMPH # 1.6 K/uL (1.0-4.3); LYMPH % 32.3 % (20.0-40.0); MEAN CORPUSCULAR HEMOGLOBIN 34.7 pg (27.0-31.0); MEAN CORPUSCULAR HGB CONC 33.7 g/dL (33.0-37.0); MEAN PLATELET VOLUME 8.9 fL (7.2-11.7); MONO # 0.5 K/uL (0.0-0.8); MONO % 10.6 % (0.0-10.0); NEUT # 2.7 K/uL (1.8-7.0); NEUT % 52.2 % (50.0-75.0); NRBC % 0.5 % (0.0-2.0); RBC 3.02 Mil/uL (3.80-5.20); RED CELL DISTRIBUTION WIDTH 20.9 % (11.5-14.5); WHITE BLOOD COUNT 5.1 K/uL (4.8-10.8)
[2017-12-26 08:32] LABS: ALB/GLOB RATIO 1.1 (1.0-2.1); ALBUMIN 2.9 g/dL (3.5-5.0); ALT/SGPT 39 U/L (9-52); AST/SGOT 23 U/L (14-36); BLOOD UREA NITROGEN 14 mg/dL (7-17); CALCIUM 8.4 mg/dl (8.6-10.4); GFR AFRICAN-AMERICAN > 60; GFR NON-AFRICAN AMERICAN > 60; MAGNESIUM 1.6 mg/dL (1.6-2.3)
--- NOTE | 2017-12-26 10:27 | CP.PCM.DIS ---
Provider - Provider Date of Admission: 12/23/17 21:43 Attending physician: Alberto Belcher Jr, MD Primary care physician: Dr. Belcher Time Spent in preparation of Discharge (in minutes): 45 Hospital Course - Lab Results Lab Results: Most Recent Lab Values WBC 5.1 K/uL (4.8-10.8) 12/26/17 07:44 RBC 3.02 Mil/uL (3.80-5.20) L 12/26/17 07:44 Hgb 10.5 g/dL (11.0-16.0) L 12/26/17 07:44 Hct 31.1 % (34.0-47.0) L 12/26/17 07:44 MCV 103.0 fL (81.0-99.0) H 12/26/17 07:44 MCH 34.7 pg (27.0-31.0) H 12/26/17 07:44 MCHC 33.7 g/dL (33.0-37.0) 12/26/17 07:44 RDW 20.9 % (11.5-14.5) H 12/26/17 07:44 Plt Count 256 K/uL (130-400) 12/26/17 07:44 MPV 8.9 fL (7.2-11.7) 12/26/17 07:44 Neut % (Auto) 52.2 % (50.0-75.0) 12/26/17 07:44 Lymph % (Auto) 32.3 % (20.0-40.0) 12/26/17 07:44 [place] % (Auto) 10.6 % (0.0-10.0) H 12/26/17 07:44 Eos % (Auto) 3.2 % (0.0-4.0) 12/26/17 07:44 Baso % (Auto) 1.7 % (0.0-2.0) 12/26/17 07:44 Neut # (Auto) 2.7 K/uL (1.8-7.0) 12/26/17 07:44 Lymph # (Auto) 1.6 K/uL (1.0-4.3) 12/26/17 07:44 [place] # (Auto) 0.5 K/uL (0.0-0.8) 12/26/17 07:44 Eos # (Auto) 0.2 K/uL (0.0-0.7) 12/26/17 07:44 Baso # (Auto) 0.1 K/uL (0.0-0.2) 12/26/17 07:44 ESR 3 mm/hr (0-20) 12/24/17 04:52 APTT 30 SECONDS (21-34) 12/23/17 23:03 Sodium 137 mmol/L (132-148) 12/26/17 07:44 Potassium 3.8 mmol/L (3.6-5.2) 12/26/17 07:44 Chloride 101 mmol/L (98-107) 12/26/17 07:44 Carbon Dioxide 31 mmol/L (22-30) H 12/26/17 07:44 Anion Gap 9 (10-20) L 12/26/17 07:44 BUN 14 mg/dL (7-17) 12/26/17 07:44 Creatinine 0.8 mg/dL (0.7-1.2) 12/26/17 07:44 Est GFR ( Amer) > 60 12/26/17 07:44 Est GFR (Non-Af Amer) > 60 12/26/17 07:44 POC Glucose (mg/dL) 85 mg/dL (65-110) 12/26/17 06:44 Random Glucose 84 mg/dL (65-105) 12/26/17 07:44 Hemoglobin A1c 4.6 % (4.2-6.5) 12/24/17 04:52 Calcium 8.4 mg/dl (8.6-10.4) L 12/26/17 07:44 Phosphorus 3.8 mg/dL (2.5-4.5) 12/26/17 07:44 Magnesium 1.6 mg/dL (1.6-2.3) 12/26/17 07:44 Total Bilirubin 0.5 mg/dL (0.2-1.3) 12/26/17 07:44 AST 23 U/L (14-36) 12/26/17 07:44 ALT 39 U/L (9-52) 12/26/17 07:44 Alkaline Phosphatase 68 U/L (38-126) 12/26/17 07:44 Total Creatine Kinase 21 U/L (30-135) L 12/24/17 07:18 CK-MB (Mass) 0.50 ng/mL (0.0-3.38) 12/24/17 07:18 Troponin I < 0.0120 ng/mL (0.00-0.120) 12/24/17 07:18 C-React Prot High Sens 8.55 mg/L (1.00-3.00) H 12/24/17 04:52 NT-Pro-B Natriuret Pep 477 pg/mL (0-900) 12/23/17 20:47 Total Protein 5.5 g/dL (6.3-8.3) L 12/26/17 07:44 Albumin 2.9 g/dL (3.5-5.0) L 12/26/17 07:44 Globulin 2.6 gm/dL (2.2-3.9) 12/26/17 07:44 Albumin/Globulin Ratio 1.1 (1.0-2.1) 12/26/17 07:44 Triglycerides 81 mg/dL (0-149) 12/24/17 04:52 Cholesterol 137 mg/dL (0-199) 12/24/17 04:52 LDL Cholesterol Direct 41 mg/dL (0-129) 12/24/17 04:52 HDL Cholesterol 87 mg/dL (30-70) H 12/24/17 04:52 Vitamin B12 429 pg/mL (239-931) 12/24/17 04:52 25-OH Vitamin D Total < 12.8 NG/ML (30.0-100.0) L 12/24/17 04:52 Folate > 20.0 ng/mL 12/24/17 04:52 Thyroxine (T4) 8.51 ug/dL (5.5-11.0) 12/24/17 04:52 TSH 3rd Generation 1.67 mIU/L (0.46-4.68) 12/24/17 04:52 Urine Color Shar[place] (YELLOW) 12/23/17 21:59 Urine Clarity Hazy (Clear) 12/23/17 21:59 Urine pH 5.0 (5.0-8.0) 12/23/17 21:59 Ur Specific [place] 1.024 (1.003-1.030) 12/23/17 21:59 Urine Protein Negative mg/dL (NEGATIVE) 12/23/17 21:59 Urine Glucose (UA) Normal mg/dL (Normal) 12/23/17 21:59 Urine Ketones Negative mg/dL (NEGATIVE) 12/23/17 21:59 Urine Blood 1+ (NEGATIVE) H 18 21:59 Urine Nitrate Negative (NEGATIVE) 12/23/17 21:59 Urine Bilirubin Negative (NEGATIVE) 12/23/17 21:59 Urine Urobilinogen 4.0 mg/dL (0.2-1.0) H 12/23/17 21:59 Ur Leukocyte Esterase Neg Gareth/uL (Negative) 12/23/17 21:59 Urine WBC (Auto) 1 /hpf (0-5) 12/23/17 21:59 Urine RBC (Auto) 3 /hpf (0-3) 12/23/17 21:59 Ur Squamous Epith Cells 7 /hpf (0-5) H 12/23/17 21:59 RPR Nonreactive (NONREACTIVE) 12/24/17 04:52 HIV 1&2 Antibody Screen Negative (NEGATIVE) 12/24/17 04:52 - Hospital Course Hospital Course: CC: weakness/loss of balance This is an 82 y/o female with history of hypertension, MO, CAD s/p stent(s), chronic lower back pain, anxiety, afib s/p watchman's procedure and diverticulitis s/p colon resection. She presents today because she has been having difficulty walking. She explains that she has been feeling off balance for about two weeks now. The episodes are relapsing and remitting. It is unclear if she has had any recent falls because she states she has not but when asked about bruising on her arms she states that it is from falls. She reports she injured her arms and legs and has bruises on her arms and legs. She is also complaining of generalized weakness. She denies any headache, fever, chills, chest pain, shortness of breath, chest pain, vomiting diarrhea, constipation, dysuria. She states that she does become nauseous during these episodes but denies dizziness/feeling the room is spinning/she is spinning. She states she just feels weak and off balance. She states that she saw Dr. Belcher at his office yesterday who instructed her to come to the ED for further evaluation but she was unable to come because her daughter was working and she could not get here. Of note, in speaking with her PMD, Dr. Belcher, he explains that the patient has dementia and may have provided an inaccurate account of events. He explains that the patient has had multiple falls and is having a severely compromised gait. PMD: Dr. Belcher Pmhx: hypertension, MO, CAD s/p stent(s), chronic lower back pain, anxiety, afib s/p watchman's procedure and diverticulitis s/p colon resection Pshx: watchman's procedure, colon resection, splenectomy Meds: Temazepam 15mg PO qhs, Lisinopril 20mg PO qd, metoprolol succ 25mg PO daily, nexium 40mg PO daily, Plavix 75mg PO daily, amiodarone 200mg PO daily, pecocet 5/325mg 1T PO q4hrs prn, xanax, 0.5mg po tid allergies: NKDA Famhx: "heart problems in everyone" Sochx: no smoking, drinks sparingly, no drugs Hospital course: Patient was admitted on for recurrent falls. In the ED, labs were drawn, images taken, and medications were given. Patient was monitored on telemetry. Head CT showed no acute findings. Rib xray showed left sided aicd, cardiomegaly, prominent ectatic aorta; right hilar prominence; no displaced or fractured rib. On labs, cardiac enzymes were negative, UA was negative for infections, CBC, iron studies, thyroid studies, HIV, RPR were all within normal range. Patient was found to have low vitamin D and was started on medication. Orthostatic blood pressure readings were normal. Patient was started on aricept , namenda, and zoloft. Home medications for HTN, chronic back pain, anxiety, CAD were restarted and conditions were monitored throughout hospital course. Case management and rn social services arranged for patient to transfer to subacute rehab at [facility]. Patient is stable for transfer to [facility]. This is a brief summary of the hospital course. Please see EMR for more details. Discharge Exam - Additional Findings Additional findings: - Constitutional Appears: No Acute Distress - Head Exam Head Exam: NORMAL INSPECTION, NORMOCEPHALIC - Eye Exam Eye Exam: EOMI, Normal appearance - ENT Exam ENT Exam: Mucous Membranes Moist - Respiratory Exam Respiratory Exam: Clear to Ausculation Bilateral, NORMAL BREATHING PATTERN. absent: Rales, Rhonchi, Wheezes, Respiratory Distress - Cardiovascular Exam Cardiovascular Exam: REGULAR RHYTHM, +S1, +S2 - GI/Abdominal Exam GI & Abdominal Exam: Soft, Normal Bowel Sounds. absent: Distended, Firm, Tenderness - Extremities Exam Extremities Exam: absent: Pedal Edema Additional comments: Contusions UE/LE b/l (as per patient- from frequent falls) - Neurological Exam Neurological Exam: Alert, Awake - Psychiatric Exam Psychiatric exam: Normal Affect, Normal Mood - Skin Skin Exam: Dry, Intact, Warm Additional comments: Contusions and abrasions noted on UE/LE bilaterally (per patient, from frequent falls) Discharge Plan - Follow Up Plan Condition: FAIR Disposition: REHAB FACILITY/REHAB UNIT Instructions: Syncope (DC), Contusion in Adults (DC) Additional Instructions: Patient is stable for discharge to [facility]. Patient must continue all medications. Patient must follow up with their PMD, Dr. Belcher, within 1-2 weeks of discharge. If symptoms reoccur or worsen, patient should return to the ED. Referrals: Alberto Belcher Jr., MD [Medical Doctor] -
[2017-12-26] MEDS: Metoprolol Succinate 25 mg XL Tab PO SCH (10:36)
[2017-12-26] MEDS ORDERED: Influenza Vaccine 60 mcg/0.5 mL SYR (4YR UP) IM ONE (12:00)
[2017-12-26 16:15] VITALS: BP 133/80; PULSE 88; TEMP 97.5; O2SAT 96
[2017-12-27] MEDS ORDERED: Pneumococcal 23-Valent Vaccine IM ONE (10:00)
== END 2017-12-26 16:22 | DRG 605 ==
LOC: C.ER 16:39 → C.9E 21:43 → C.6T 12-24 10:22
PROVIDERS: ADMIT Internal Medicine; ATTEND Internal Medicine
DX: S20.219A Contusion of unspecified front wall of thorax, initial encounter (principal); I48.91 Unspecified atrial fibrillation; F03.90 Unspecified dementia, unspecified severity, without behavioral disturbance, psychotic disturbance, mood disturbance, and anxiety; W18.30XA Fall on same level, unspecified, initial encounter; I11.9 Hypertensive heart disease without heart failure; R29.6 Repeated falls; Z87.01 Personal history of pneumonia (recurrent); Z95.0 Presence of cardiac pacemaker; Z95.5 Presence of coronary angioplasty implant and graft; I25.10 Atherosclerotic heart disease of native coronary artery without angina pectoris; I51.7 Cardiomegaly; F41.9 Anxiety disorder, unspecified; E03.9 Hypothyroidism, unspecified